=== PATIENT | male | born 1980 | race Caucasian/White ===

== ENCOUNTER → 2019-10-04 08:43 | Outpatient (CLI) | payer OTHER, SELFPAY ==
--- NOTE | 2019-10-04 08:49 | US_ITS ---
PROCEDURE: US ABDOMEN LIMITED CLINICAL INDICATION: EPIGASTRIC PAIN COMPARISON: RUQ US RUQ-(ABD LTD)1ORGAN/QUAD/FU from 12/09/2016 FINDINGS: PANCREAS: Unremarkable. No obvious mass or abnormal fluid collection. No ductal dilatation LIVER: There is diffuse heterogeneous echogenicity of the liver with scattered areas of increase echogenicity consistent with heterogeneous fatty liver infiltration. No focal liver lesions are evident. There is appropriate direction of blood flow within a non dilated portal vein. RIGHT KIDNEY: Unremarkable. Normal size and echogenicity. No hydronephrosis GALLBLADDER: No gallstones, gallbladder wall thickening, pericholecystic fluid, or biliary dilatation. IMPRESSION: Unremarkable gallbladder ultrasound. Fatty liver Dictated by: Raffaele Hall MD 10/04/2019 18:38 Electronically signed by Raffaele Hall MD in [place] 10/04/2019 18:38
--- NOTE | 2019-10-04 08:52 | NM_ITS ---
PROCEDURE: NM HEPATOBILIARY W PHARM CLINICAL INDICATION: EPIGASTRIC PAIN Right upper quadrant pain COMPARISON: US ABDOMEN LIMITED from 10/04/2019 TECHNIQUE: DOSE: 8.15 mci tc choletec 1.8 mcg of cck FINDINGS: Homogeneous activity is present within the hepatic parenchyma. Activity is present in the gallbladder by 10 minutes. Activity is present in the small bowel during the ejection fraction images.. The gallbladder ejection fraction is calculated to be 90 percent. CCK-The patient did not report pain or other symptoms during CCK infusion. IMPRESSION: No evidence of common or cystic duct obstruction. Ejection fraction is normal at 90 percent. There was some delay in visualization of the small bowel which is of questionable clinical significance. Dictated by: Raffaele Hall MD 10/07/2019 11:53 Electronically signed by Raffaele Hall MD in [place] 10/07/2019 11:53
== END ==
PROVIDERS: PCP Family Medicine; Visit Provider Physician Assistant
DX: R10.13 Epigastric pain (principal)
CPT/HCPCS: 76705; 78227; A9537; J2805

== ENCOUNTER 2022-03-19 11:33 | Emergency (ER) | payer SELFPAY ==
[2022-03-19 11:45] VITALS: BP 126/80; PULSE 96; RESP 18; TEMP 37.1; O2SAT 94; BMI 31.7
--- NOTE | 2022-03-19 11:53 | XR_ITS ---
PROCEDURE INFORMATION: Exam: XR Chest Exam date and time: 03/19/2022 12:18 PM Age: 41 years old Clinical indication: Cough; Additional info: Cough, congestion TECHNIQUE: Imaging protocol: Radiologic exam of the chest. Views: 2 views. COMPARISON: CR CXR CHEST(2 VIEWS-NOT PORTABLE) 12/03/2016 9:32 AM FINDINGS: Lungs: Unremarkable. No consolidation. Pleural spaces: Unremarkable. No pleural effusion. No pneumothorax. Heart/Mediastinum: Unremarkable. No cardiomegaly. Bones/joints: Unremarkable. IMPRESSION: No acute findings.
[2022-03-19 12:05] VITALS: BP 126/80; PULSE 96; RESP 23; TEMP 37.1; O2SAT 96; BMI 31.8
--- NOTE | 2022-03-19 12:48 | EXP.UTC ---
Discharge Plan Disposition Patient Disposition: Home, Self-Care Condition: Good Prescriptions Prescriptions: New cjcobhrgwdnssda-krgmrocyh-WX [Bromfed DM] 2-30-10 mg/5 mL Syrup 10 ml PO Q4H PRN (Reason: Cough) Qty: 240 0RF No Action azithromycin 250 MG tablet 250 mg PO DIRECTED Qty: 6 0RF Rx Instructions: Take two (2) tablets on day #1, then one (1) tablet day #2 thru #5 fluticasone propionate 120 SPR/BOT bottle 1 spr NS DAILY 7 Days Qty: 1 0RF dnjvtuovmbnmsdz-fvtpbgilq-YU 118 ML syrup 5 - 10 ml PO Q46H PRN (Reason: Cough) Qty: 200 0RF Referrals Follow up/Referrals: Jose De Jesus Perez MD [Primary Care Provider] - See instructions Activity Restrictions/Add. Instructions Additional Instructions/Restrictions: *Monitor Temp, Over the counter Motrin or Tylenol as directed/as needed Tylenol every 4 hours and Motrin every 6 hours (as long as your family doctor has told you that you can take it) for fever or pain. and straight to ER if unable to lower temp less than 101.0 after medication given *Warm salt water gargles may help to soothe the throat *Throat Lozenges? *Warm fluids like tea with honey may help to soothe the throat? *Sleep elevated *Humidifier/Vaporizer Follow up IMMEDIATELY for new or worsening symptoms or no Noticeable improvement over the next 48-72 hours. 911 for difficulty breathing or swallowing You were tested for today for Upper Respiratory Panel with COVID19 your test result should be back in the next 24-48 hours, you may check your results on the [facility] My Health Portal Lots of rest Increase Fluids water, Gatorade, powerade, pedialyte,if infant/toddler/child Alternate Tylenol and / or ibuprofen as discussed for fever, aches, chills Follow up IMMEDIATELY with your family doctor for new or worsening Symptoms OR no noticeable improvement over the next 48-72 hours, 911 for difficulty or breathing You or your child area contagious until no fever, aches, chills for 24 hours with medication for symptoms Help Prevent the spread of influenza: ?Wash your hands often. Use soap and water. Wash your hands after you use the bathroom, change a child's diapers, or sneeze. Wash your hands before you prepare or eat food. Use gel hand cleanser that has 60% alcohol, when soap and water are not available. Do not touch your eyes, nose, or mouth unless you have washed your hands first. Cover your mouth when you sneeze or cough. Cough into a tissue or the bend of your arm. If you use a tissue, throw it away immediately and wash your hands. Clean shared items with a germ-killing bus cleaner. Clean table surfaces, doorknobs, and light switches. Do not share towels, silverware, and dishes with people who are sick. Wash bed sheets, towels, silverware, and dishes with soap and water. Wear a mask over your mouth and nose if you are sick. The face mask may help protect others from becoming infected with the flu. Wear the mask when in common areas of your home or if you seek care with a healthcare provider. Stay away from others if you are sick. Stay at home until 24 hours after your fever and symptoms are gone. Clinical Impressions Clinical Impression: Viral syndrome Stand Alone Forms Stand Alone Forms: Work/School Release Instructions Patient Instructions: Cough, DI for Influenza -- Adult, DI for Viral Syndrome Discharge ED Provider: Sara Mariscal [facility] General Stated complaint: weakness, soa, cough Mode of Arrival: Ambulatory Source of Information: Patient Limitations: No Limitations Time Seen by Provider: 03/19/22 12:48 Description of Symptoms (Recalled from Triage Doc. by RN): PATIENT REPORTS HE TESTED POSITIVE FOR FLU ON MONDAY AND IS FEELING WORSE TODAY. REPORTS SOA, COUGH, BODY ACHES, AND PAIN TO CHEST AND BACK WITH C
[2022-03-19 12:57] VITALS: BP 126/80; PULSE 96; RESP 23; TEMP 37.1; O2SAT 96
[2022-03-19 13:06] LABS: Adenovirus,PCR Not Detected (NotDetected); Bordetella Pertussis Not Detected (NotDetected); Chlamydophila Pneumoniae, PCR Not Detected (NotDetected); Coronavirus 19, PCR Not Detected (NotDetected); Coronavirus 229E Not Detected (NotDetected); Coronavirus NL63 Not Detected (NotDetected); Coronavirus OC43 Not Detected (NotDetected); Coronovirus HKU1,PCR Not Detected (NotDetected); Human Metapneumovirus Not Detected (NotDetected); Influenza A, PCR Not Detected (NotDetected); Influenza AH1, PCR Not Detected (NotDetected); Influenza AH3,PCR Not Detected (NotDetected); Influenza B, PCR Not Detected (NotDetected); Mycoplasma Pneumoniae, PCR Not Detected (NotDetected); Parainfluenza 1, PCR Not Detected (NotDetected); Parainfluenza 2, PCR Not Detected (NotDetected); Parainfluenza 3, PCR Not Detected (NotDetected); Parainfluenza 4, PCR Not Detected (NotDetected); Respiratory Syncytial Virus Not Detected (NotDetected); Rhinovirus/Enterovirus Not Detected (NotDetected)
[2022-03-21 09:15] LABS: Influenza AH1, 2009 Detected (NotDetected)
--- NOTE | 2022-03-21 18:42 | PC.NURSE ---
pt notified of respiratory panel results
== END 2022-03-19 13:05 | disposition home or self-care (01) ==
PROVIDERS: Emergency Provider Nurse Practitioner; PCP Family Medicine
DX: J10.1 Influenza due to other identified influenza virus with other respiratory manifestations (principal)
CPT/HCPCS: 71046; 87581; 87632; 87798; 99212; C9803; G0463; U0003; U0005

== ENCOUNTER → 2022-05-06 11:00 | Outpatient (CLI) | payer OTHER, SELFPAY ==
[2022-05-06 18:01] LABS: Basophils # 0.1 K/mm3 (0-0.2); Basophils % 1.1 % (0.1-2.0); Eosinophils # 0.1 K/mm3 (0.0-0.4); Eosinophils % 1.6 % (0.1-12.0); Hemoglobin 16.5 g/dL (14.1-18.0); Lymphocytes # 2.9 K/mm3 (0.7-4.5); Lymphocytes % 34.7 % (10-50); Mean Corpuscular Hemoglobin 26.1 pg (27.0-31.2); Mean Corpuscular Volume 78.9 fl (80-94); Mean Platelet Volume 8.2 fl (7.4-10.4); Monocytes # 0.5 K/mm3 (0.1-1.0); Monocytes % 5.9 % (1.7-9.3); Neutrophils # 4.7 K/mm3 (1.8-7.8); Neutrophils % 56.7 % (37.0-80.0); Platelet Count 368 K/mm3 (142-424); Red Blood Count 6.33 M/mm3 (4.60-6.20); Red Cell Distribution Width 13.6 % (11.5-17.5); White Blood Count 8.2 K/mm3 (4.8-10.8)
[2022-05-06 18:10] LABS: Alanine Aminotransferase 75 U/L (12-78); Albumin Level 4.8 g/dl (3.5-5.0); Albumin/Globulin Ratio 1.5 (1.1-1.8); Alkaline Phosphatase 98 U/L (38-126); Anion Gap 10.3 mEq/L (5-15); Aspartate Amino Transferase 48 U/L (17-59); Bilirubin,Total 0.5 mg/dl (0.2-1.3); Blood Urea Nitrogen 12 mg/dl (9-20); Calcium 9.2 mg/dl (8.4-10.2); Carbon Dioxide 30 mmol/L (22.0-30.0); Chloride 104 mmol/L (98-107); Chol/HDL Ratio 5.7 (1-3.5); Cholesterol 218 mg/dl (140-200); Estimated Glomerular Filt Rate 73 ml/min (>60); GFR (African American) 89 ML/MIN (>60); Globulin 3.3 g/dL (1.3-3.2); Glucose 94 mg/dl (74-100); HDL Cholesterol 38 mg/dl (40-60); Potassium 4.3 mmoL/L (3.5-5.1); Sodium 140 mmol/L (136-145); Total Protein,Serum 8.1 g/dl (6.3-8.2); Triglycerides 265 mg/dl (30-150); VLDL Cholesterol 53 mg/dL (0-40)
[2022-05-06 18:21] LABS: Direct LDL Cholesterol 146.36 mg/dL (100-129)
[2022-05-06 18:28] LABS: 25-OH Vitamin D, Total 20.9 ng/mL (30-100)
[2022-05-06 18:40] LABS: Thyroid Stimulating Hormone 1.39 uIU/mL (0.465-4.68)
[2022-05-06 18:59] LABS: Vitamin B12 825 pg/mL (239-931)
[2022-05-14 06:03] LABS: Testosterone,Free 3.6 pg/mL (6.8-21.5)
== END ==
LOC: LAB.DROPOF 05-24 23:52
PROVIDERS: PCP Nurse Practitioner Family; Visit Provider Nurse Practitioner Family
DX: R53.83 Other fatigue (principal); I10 Essential (primary) hypertension; E55.9 Vitamin D deficiency, unspecified; E29.1 Testicular hypofunction
CPT/HCPCS: 80053; 80061; 82306; 82607; 84402; 84403; 84443; 85025

== ENCOUNTER → 2022-05-13 12:41 | Outpatient (CLI) | payer OTHER, SELFPAY ==
--- NOTE | 2022-05-13 13:32 | CA_ITS ---
APPROVED REPORT EXAM: Comprehensive 2D, Doppler, and color-flow Echocardiogram Ict Managers: Glenys Zhu, RT(R) Ht: 5 ft 9 in Wt: 207lbs BSA: 2.10 BP: 136/80 mmHg Indications: SOA, CP, ex smoker, family history of HD 2D Dimensions LVOT 2.02 cm (M/F) 1.5-2.5 M-Mode Dimensions RVDd 2.81 cm (0.9-2.6) LA Diam 3.43 cm (1.9-4.0) LVDd 4.64 cm (3.5-5.7) Ao Diam 2.71 cm (2.0-3.7) LVDs 2.58 cm (3.5-5.7) IVSd 0.91 cm (0.6-1.1) PWd 0.91 cm (0.6-1.1) EF (Teich) 75.70% FS 44.40% EDV (Teich) 99.30 mL ESV (Teich) 24.10 mL LV Diastology E Decel Time 173.00 (160-240 msec) E/A Ratio 0.8 MED E' 6.70 (< 7 cm/sec) E'/MED E' Ratio 7.60 (>14) LAT E' 7.30 (<10 cm/sec) E/LAT E' Ratio 6.97 (>14) Mitral Valve MV E Max Farhat. 51.00 (40-130 cm/s) MV A Velocity 67.00 (40-130 cm/s) E/A Ratio 0.76 MV Decel. Time 173.00 (160-240 ms) MV PHT 51.00 ms Left Ventricle Left atrium is mildly enlarged, left ventricle is normal size mild concentric left ventricular hypertrophy, estimated ejection fraction 55% with no regional wall motion abnormality, grade 1 diastolic dysfunction seen without tissue Doppler evidence of raise left atrial pressure. Right Ventricle Right atrium and right ventricular mildly enlarged with normal contractility. Aortic Valve Aortic valve is minimally thickened and fibrosed there is no aortic stenosis aortic insufficiency. Mitral Valve Mitral valve is grossly normal, there is trace mitral regurgitation. Tricuspid Valve Tricuspid valve grossly normal, there is trace tricuspid regurgitation, tricuspid regurgitation jet plus is inadequate for calculation of the right ventricular systolic pressure. Pulmonic Valve Pulmonic valve is poorly visualized. Great Vessels Aortic root is normal size. Inferior vena cava is poorly visualized. Pericardium Small pericardial effusion noted. Conclusion 1. Mild biatrial enlargement, normal left ventricular size, mild concentric left ventricular hypertrophy, estimated ejection fraction 55% with no regional wall motion abnormality, grade 1 diastolic dysfunction seen without tissue Doppler evidence of raise left atrial pressure. 2. Mildly enlarged right ventricle with normal contractility. 3. Trace mitral and tricuspid regurgitation. 4. Small pericardial effusion noted. 5. Inferior vena cava is poorly visualized. Electronically signed by : Dwain Wright MD 05/13/2022 14:11:10
== END ==
LOC: RT 12:41
PROVIDERS: PCP Nurse Practitioner Family; Visit Provider Nurse Practitioner Family
DX: R06.02 Shortness of breath (principal); R05 Cough
CPT/HCPCS: 93306; 94060; 94618

== ENCOUNTER → 2022-06-07 07:50 | Outpatient (CLI) | payer OTHER, SELFPAY ==
--- NOTE | 2022-06-07 10:27 | CA_ITS ---
APPROVED REPORT Exam: Exercise Treadmill Technologist: Velma Yi Ht: 5 ft 9 in Wt: 209 lbs BSA: 2.10 m2 HR: 72 bpm BP: 121/82 mmHg Indications: Chest pain Medical History Medications: HCTZ,,,,, Valsartan,,,,, Clomid,,,,, Stress Test Details Test: Elias HR Resting HR: 82 bpm Max Heart Rate (APMHR): 178.609262 bpm Max HR Achieved: 142 bpm Target HR (85% APMHR): 151.721145 bpm % of APMHR: 79.78 Recovery HR: 95 bpm BP Resting BP: 121.0/82.0 mmHg Max BP: 194.0/80.0 mmHg Recovery BP: 141.0/92.0 mmHg ECG Resting ECG: Normal sinus rhythm, rightward axis Clinical Exercise duration: 09:30 min Highest Stage Achieved: Exercise capacity: 10.1 METs Stress ECG Conclusion Patient exercised 9:30 on Elias Protocol Test stopped due to shortness of air, leg fatigue. Symptoms: Mild chest tightness after exercise. Arrhythmias/Ectopy: None ST-T Changes: T wave inversion in leads III and aVF with 0.5-1mm of horizontal ST depression. 0.[address] depression laterally. Conclusion: Equivocal GXT to heart rate acheived (80% of PM). GXT only(no imaging). Test Summary REST . . . . . . . Sitting REST 03:14 0.0 0.0 82 . 121/ 82 . . Stage 1 01:00 10.0 1.7 108 . . . . Stage 1 02:00 10.0 1.7 113 . . . . Stage 1 03:00 10.0 1.7 111 . 154/ 84 . . Stage 2 01:00 12.0 2.5 122 . . . . Stage 2 02:00 12.0 2.5 124 . . . . Stage 2 03:00 12.0 2.5 123 . 188/ 80 . . Stage 3 01:00 14.0 3.4 128 . . . . Stage 3 02:00 14.0 3.4 133 . . . . Stage 3 03:00 14.0 3.4 136 . 194/ 80 . . Stage 4 00:30 16.0 4.2 141 . . . Stop exercise at 09:30 RECOVERY 01:00 0.0 0.0 126 . . . . RECOVERY 02:00 0.0 0.0 102 . 165/ 96 . . RECOVERY 03:00 0.0 0.0 108 . 143/ 94 . . RECOVERY . . . . . . . Chest pain RECOVERY 04:00 0.0 0.0 93 . 143/ 94 . . RECOVERY 05:00 0.0 0.0 102 . 141/ 92 . . RECOVERY 05:29 0.0 0.0 92 . 141/ 92 . . Electronically signed by : Dwain Wright MD 06/07/2022 18:54:08
== END ==
PROVIDERS: PCP Nurse Practitioner Family; Visit Provider Nurse Practitioner Family
DX: R06.02 Shortness of breath (principal); R07.89 Other chest pain
CPT/HCPCS: 93017

== ENCOUNTER → 2022-06-27 18:03 | Outpatient (CLI) | payer OTHER, SELFPAY ==
[2022-06-27 18:49] LABS: Chloride 100 mmol/L (98-107); Sodium 139 mmol/L (136-145)
[2022-06-27 18:50] LABS: Potassium 3.7 mmoL/L (3.5-5.1)
[2022-06-27 18:52] LABS: Blood Urea Nitrogen 15 mg/dl (9-20); Estimated Glomerular Filt Rate 73 ml/min (>60); GFR (African American) 89 ML/MIN (>60)
[2022-06-27 18:53] LABS: Anion Gap 10.7 mEq/L (5-15); Calcium 8.5 mg/dl (8.4-10.2); Carbon Dioxide 32 mmol/L (22.0-30.0); Glucose 101 mg/dl (74-100)
== END ==
PROVIDERS: PCP Nurse Practitioner Family; Visit Provider Nurse Practitioner
DX: R07.89 Other chest pain (principal)
CPT/HCPCS: 80048

== ENCOUNTER → 2022-06-28 08:00 | Outpatient (CLI) | payer OTHER, SELFPAY ==
[2022-06-28 08:39] VITALS: BMI 31.0
[2022-06-28 09:05] VITALS: BP 124/69; PULSE 55; RESP 18; O2SAT 98
== END ==
LOC: RAD 08:01
PROVIDERS: PCP Nurse Practitioner Family; Visit Provider Nurse Practitioner Family
DX: R06.02 Shortness of breath (principal); I10 Essential (primary) hypertension; R94.31 Abnormal electrocardiogram [ECG] [EKG]; R94.39 Abnormal result of other cardiovascular function study
CPT/HCPCS: 75574; Q9967

== ENCOUNTER 2022-07-08 18:06 | Emergency (ER) | payer OTHER, SELFPAY ==
[2022-07-08 18:15] VITALS: BP 149/101; PULSE 86; RESP 22; TEMP 36.6; O2SAT 97; BMI 31.7
--- NOTE | 2022-07-08 18:20 | XR_ITS ---
PROCEDURE INFORMATION: Exam: XR Right Ribs with PA Chest Exam date and time: 07/08/2022 6:25 PM Age: 41 years old Clinical indication: Pain; Other: Right rib; Additional info: Pain in ribs TECHNIQUE: Imaging protocol: Radiologic exam of the right ribs with PA chest. Views: 3 views COMPARISON: CR XR CHEST 2V 03/19/2022 12:18 PM FINDINGS: Lungs: Unremarkable. No consolidation. Pleural spaces: Unremarkable. No pleural effusion. No pneumothorax. Heart/Mediastinum: Unremarkable. No cardiomegaly. Bones/joints: Unremarkable. IMPRESSION: No acute findings.
--- NOTE | 2022-07-08 18:32 | EXP.UTC ---
Discharge Plan Disposition Patient Disposition: Home, Self-Care Condition: Good Prescriptions Prescriptions: New benzonatate 100 mg capsule 100 mg PO TID PRN (Reason: cough) Qty: 30 0RF azithromycin [Zithromax Z-Carlitos] 250 mg tablet See Rx Instructions .ROUTE .COMPLEX 5 Days Qty: 6 0RF Rx Instructions: For 250 mg dose pack: take 500 mg today (day 1), then 250 mg for 4 days (days 2-5) No Action albuterol sulfate 90 mcg/actuation HFA aerosol inhaler 2 puff inhalation Q4-6H PRN (Reason: shortness of breath or wheezing) Qty: 8.5 3RF cetirizine [Zyrtec] 10 mg tablet 10 mg PO DAILY PRN (Reason: allergy symptoms) Qty: 30 3RF fluticasone propionate [Flonase Allergy Relief] 50 mcg/actuation spray,suspension 1 spray intranasal DAILY Qty: 16 2RF Rx Instructions: administer into each nostril clomiphene citrate [Clomid] 50 mg tablet 25 mg PO DAILY Rx Instructions: 25 days on 5 days off valsartan-hydrochlorothiazide 160-12.5 mg tablet 1 tab PO DAILY Referrals Follow up/Referrals: Reginaldo Vazquez APRN [Primary Care Provider] - See instructions Activity Restrictions/Add. Instructions Additional Instructions/Restrictions: *Monitor Temp, Over the counter Motrin or Tylenol as directed/as needed Tylenol every 4 hours and Motrin every 6 hours (as long as your family doctor has told you that you can take it) for fever or pain. and straight to ER if unable to lower temp less than 101.0 after medication given *Warm salt water gargles may help to soothe the throat *Throat Lozenges? *Warm fluids like tea with honey may help to soothe the throat? *Sleep elevated *Humidifier/Vaporizer Take medication as prescribed Continue using flonase as prescribed Follow up IMMEDIATELY for new or worsening symptoms or no Noticeable improvement over the next 48-72 hours. 911 for difficulty breathing or swallowing Clinical Impressions Clinical Impression: Sinusitis Instructions Patient Instructions: Sinusitis, DI for Sinusitis Discharge ED Provider: Sara Mariscal [facility] [place] General Stated complaint: cough, SOB R Ribs pain Mode of Arrival: Ambulatory Source of Information: Patient Limitations: No Limitations Time Seen by Provider: 07/08/22 18:32 Description of Symptoms (Recalled from Triage Doc. by RN): PATIENT C/O COUGH AND SINUS PRESSURE X 2 DAYS. HE STATES HE HAD A SNEEZING FIT YESTERDAY AND FELT A SHARP PAIN TO RIGHT SIDE. SINCE THEN HE C/O RIGHT RIB PAIN WITH COUGHING AND BREATHING HEENT Symptoms (Recalled from RN notes): Yes Resp Symptoms (Recalled from RN notes): Yes Skin Symptoms (Recalled from RN notes): No MS Symptoms (Recalled from RN notes): Yes Functional Status (Recalled from RN notes): WNL History of Present Illness Provider Complaint: Patient states that he has been having sinus pain and pressure for the last couple of days with cough and yesterday as he was bent over he had a sneezing fit and felt a sharp pain/catch in his right lower ribs States that since then he has been having pain in his ribs when he takes a deep breath or coughs States that today he was till having pain so he came in worried he may have broken a rib Related Data Home Medications Medication Instructions Recorded Confirmed clomiphene citrate 50 mg tablet 25 mg PO DAILY . 06/28/22 (Clomid) valsartan 160 1 tab PO DAILY bp 06/28/22 mg-hydrochlorothiazide 12.5 mg tablet Previous Rx's Medication Instructions Recorded cetirizine 10 mg tablet (Zyrtec) 10 mg PO DAILY PRN allergy 06/29/22 symptoms #30 tabs fluticasone propionate 50 1 spray intranasal DAILY #16 grams 06/29/22 mcg/actuation nasal spray,suspension (Flonase Allergy Relief) albuterol sulfate 90 mcg/actuation 2 puff inhalation Q4-6H PRN 07/07/22 aerosol inhaler shortness of breath or wheezing #8.5 grams azithromycin 250 mg tablet See Rx Instructions PO .COMPLEX 5 07/08/22 (Zithromax Z-Carlitos)
[2022-07-08 18:53] VITALS: BP 147/95; PULSE 86; RESP 22; TEMP 36.6; O2SAT 97
== END 2022-07-08 18:55 | disposition home or self-care (01) ==
PROVIDERS: Emergency Provider Nurse Practitioner; PCP Nurse Practitioner Family
DX: J01.90 Acute sinusitis, unspecified (principal); Z87.891 Personal history of nicotine dependence; R07.81 Pleurodynia
CPT/HCPCS: 71101; 99212; 99214; G0463

== ENCOUNTER → 2022-09-28 13:40 | Outpatient (CLI) | payer OTHER, SELFPAY | PROVIDERS: PCP Nurse Practitioner Family; Visit Provider Internal Medicine Pulmonary Disease | DX: R06.09 Other forms of dyspnea (principal); J45.40 Moderate persistent asthma, uncomplicated | CPT/HCPCS: 94070; 95070; J7674 ==

== ENCOUNTER 2023-04-03 19:11 | Emergency (ER) | payer OTHER, SELFPAY ==
[2023-04-03 19:13] VITALS: BP 153/102; PULSE 82; RESP 20; TEMP 36.6; O2SAT 97; BMI 31.7
--- NOTE | 2023-04-03 19:47 | ED_ITS ---
Discharge Plan Disposition Patient Disposition: Home, Self-Care Prescriptions Prescriptions: New tamsulosin 0.4 mg capsule 0.4 mg PO DAILY Qty: 30 0RF lidocaine 5 % adhesive patch,medicated 1 patch topical DAILY PRN (Reason: pain) Qty: 30 0RF Rx Instructions: leave on most painful area for up to 12 hrs No Action budesonide-formoterol [Symbicort] 160-4.5 mcg/actuation HFA aerosol inhaler 2 puff inhalation BID 90 Days Qty: 10.2 2RF albuterol sulfate 90 mcg/actuation HFA aerosol inhaler 2 puff inhalation Q4-6H PRN (Reason: shortness of breath or wheezing) Qty: 8.5 3RF Referrals Follow up/Referrals: Reginaldo Vazquez APRN [Primary Care Provider] - See instructions Activity Restrictions/Add. Instructions Additional Instructions/Restrictions: Please follow-up with your primary care provider. Please return to the emergency department if you develop any new or worsening symptoms or become concerned for your health. Please take tamsulosin daily until symptom resolution. Monitor for signs of systemic infection and return if your symptoms worsen or do not improve. Clinical Impressions Clinical Impression: Kidney stone on right side Abdominal pain Qualifiers: Abdominal location: lower abdomen, unspecified Qualified Code(s): R10.30 - Lower abdominal pain, unspecified Instructions Patient Instructions: DI for Urinary Tract Infection (UTI), DI for Urinary Tract Infection in Children Discharge ED Provider: Ralph Palomino General Adult HPI General Chief complaint: Urogenital-Male Stated complaint: lower back pain, burning when urinating Time Seen by Provider: 04/03/23 19:46 History of Present Illness HPI narrative: 42-year-old male with no significant past medical history presents with several days of worsening bilateral low back pain and mild abdominal pain. He reports some burning with urination. He denies any history of urinary tract infections or STDs. Reports no concern for such. Reports no fevers at home. Related Data Previous Rx's Medication Instructions Recorded albuterol sulfate 90 mcg/actuation 2 puff inhalation Q4-6H PRN 08/29/22 aerosol inhaler shortness of breath or wheezing #8.5 grams budesonide-formoterol HFA 160 2 puff inhalation BID 90 days 09/28/22 mcg-4.5 mcg/actuation aerosol #10.2 grams inhaler (Symbicort) lidocaine 5 % topical patch 1 patch topical DAILY PRN pain #30 04/03/23 ea tamsulosin 0.4 mg capsule 0.4 mg PO DAILY #30 caps 04/03/23 Allergies Allergy/AdvReac Type Severity Reaction Status Date / Time No Known Allergies Allergy Verified 09/28/22 15:18 [facility] Disclaimer: The information contained in this section may have been updated after the patient was seen, as this information can be updated by other users. Medical History (Updated 04/03/23 @ 21:50 by Ralph Palomino MD) Abnormal electrocardiogram [ECG] [EKG] Disordered sleep Dyspnea on exertion Equivocal stress test Hypertension No significant past medical history SOB (shortness of breath) Surgical History H/O hernia repair H/O: vasectomy Family History Other Family history of CVA Family history of cancer Social History (Updated 08/29/22 @ 14:02 by Bev Lizama) Smoking Status: Never smoker smoking status stop date: 2008 alcohol intake: never substance use type: denies use current occupational status: employed and other Travel in the last 8 weeks: Inside the [place] ROS Obtained: Yes All systems reviewed & no additional complaints except as documented Physical Exam General General appearance: alert and in no apparent distress Head Head exam: atraumatic and normocephalic Eye Eye exam: Present normal appearance, PERRL and EOMI ENT ENT exam: Present normal oropharynx and normal external ear exam Neck Neck exam: Present normal inspection and full ROM Chest Chest inspection: Present normal inspection and symmetric chest wall rise; Absent tenderness Respiratory Respiratory exam: Present normal lung sounds bilaterally; Absent respiratory distress Cardiovascular Cardiovascular exam: Present regular rate and normal rhythm Abdominal Exam Abdominal exam: Present soft and tenderness (Mild bilateral lower quadrant); Absent distention or guarding Extremities Exam Extremities exam: Present normal inspection; Absent edema or joint swelling Back Exam Back exam: Present normal inspection and tenderness (Mild lumbar paraspinal tenderness); Absent CVA tenderness (R) or CVA tenderness (L) Neurological Exam Neurological exam: Present alert and oriented X3; Absent motor sensory deficit Psychiatric Psychiatric exam: Present normal affect and normal mood Skin Skin exam: Present warm, dry and normal color Lymphatic Lymphatic Findings: no adenopathy Medical Decision Making Medical Records Medical records reviewed: Yes I reviewed the patient's medical records. Kiko Inquiry Pt receiving controlled substance: No Kiko was queried for this patient: No Vital Signs: 04/03/23 19:13 04/03/23 22:03 Temperature 98 F 97.8 F Temperature Source Oral Oral Pulse Rate 58 L Pulse Rate [Right] 82 Respiratory Rate 20 18 Blood Pressure 141/82 H Blood Pressure [Right Arm] 153/102 H Blood Pressure Mean [Right Arm] 119 Blood Pressure Source Automatic Cuff Blood Pressure Source [Right Arm] Automatic Cuff Blood Pressure Position Supine Blood Pressure Position [Right Arm] Sitting 02 Sat by Pulse Oximetry 97 Oxygen Delivery Method Room Air Room Air Lab Data Lab results reviewed: Yes I reviewed the patient's lab results. Lab Results 04/03/23 19:43: Urine Color Yellow, Urine Appearance Clear, Urine pH 6.0, Ur Specific [place] 1.010, Urine Protein Negative, Urine Glucose (UA) Negative, Urine Ketones Negative, Urine Blood 2+, Urine Nitrate Negative, Urine Bilirubin Negative, Urine Urobilinogen 0.2, Ur Leukocyte Esterase Negative, Urine RBC 10- 20, Urine WBC Occasional, Ur Squamous Epith Cells Occasional, Urine Bacteria Trace 04/03/23 20:00: WBC 8.7, RBC 5.93, Hgb 16.0, Hct 46.9, MCV 79.2 L, MCH 27.0, MCHC 34.0, RDW 13.7, Plt Count 258, MPV 7.3 L, Neut % (Auto) 57.9, Lymph % (Auto) 35.3, [place] % (Auto) 4.5, Eos % (Auto) 1.6, Baso % (Auto) 0.7, Neut # (Auto) 5.0, Lymph # (Auto) 3.1, [place] # (Auto) 0.4, Eos # (Auto) 0.1, Baso # (Auto) 0.1, Sodium 137, Potassium 3.8, Chloride 100, Carbon Dioxide 32 H, Anion Gap 8.8, BUN 13, Creatinine 1.10, Estimated Creat Clear 119, Estimated GFR 73, Est GFR ( Amer) 88, Glucose 113 H, Calcium 8.6, Total Bilirubin 0.5, AST 61 H, ALT 93 H, Alkaline Phosphatase 82, Total Protein 7.4, Albumin 4.2, Globulin 3.2, Albumin/Globulin Ratio 1.3 04/03/23 20:00 04/03/23 20:00 Orders (Tests/Meds): ED MEDICATIONS Discontinued Medications Generic Name Dose Route Start Last Admin Trade Name Benjaminq PRN Reason Stop Dose Admin Acetaminophen 1,000 mg 04/03/23 19:51 04/03/23 20:12 Acetaminophen 500mg Tab PO 04/03/23 19:52 1,000 mg ONCE ONE Administration Iopamidol 75 ml 04/03/23 20:15 04/03/23 20:16 Iopamidol-370 (76%);100ml Bottle IV 04/03/23 20:16 75 ml ONCE ONE Administration Ketorolac Tromethamine 30 mg 04/03/23 19:51 04/03/23 20:12 Ketorolac 30mg/Ml Vial IV 04/03/23 19:52 30 mg ONCE ONE Administration Sodium Chloride 10 ml 04/03/23 20:15 04/03/23 20:16 Sodium Chloride 0.9% 10ml Syr (Rad Only) IV 05/03/23 20:14 10 ml NEEDED PRN Administration Maintain IV Site Tamsulosin HCl 0.4 mg 04/03/23 21:50 04/03/23 21:56 Tamsulosin 0.4mg Capsule PO 04/03/23 21:51 0.4 mg ONCE ONE Administration ORDERS Category Date Time Status CT abdomen pelvis w con Stat Cat Scan 04/03/23 19:51 Completed CBC w/Auto Diff [Complete Blood Count Auto Diff] Stat Lab 04/03/23 20:00 Completed CMP [Comprehensive Metabolic Panel] Stat Lab 04/03/23 20:00 Completed UA [Urinalysis and Microscopic] Stat Lab 04/03/23 19:43 Completed Medical Decision Narrative: 42-year-old male, previously healthy presents with low back and lower abdominal pain. History was obtained via conversation with patient, family. On arrival, patient is [afebrile, hemodynamically stable, satting appropriately, alert, oriented x4, GCS 15], moving all extremities spontaneously. Full physical exam performed and significant for mild lower abdominal and low back tenderness. Differential includes but is not limited to diverticulitis, UTI, obstructive nephrolithiasis, gastroenteritis, hernia. Patient was given p.o. Tylenol, IV Toradol for symptomatic management and correction of underlying abnormalities. Patient declined any stronger medication intervention. Workup initiated including CBC CMP UA CT Abdo pelvis with IV contrast. On re-evaluation, patient [remains afebrile, HD stable.] Laboratory workup independently interpreted by me and significant for no leukocytosis, normal renal function, mildly elevated LFTs, urine is consistent with kidney stone with 10-20 RBCs and occasional WBCs. Nitrite negative. Not appear consistent with acute infection.. Imaging independently interpreted by me and significant for 5 x 4 mm stone in the distal right ureter without evidence of obstruction. See radiology read for full review of final results. Given patient history, exam and workup, patient's presentation most likely represents nonobstructing right ureteral stone. Patient given dose of tamsulosin. Extensive discussion with patient and family regarding presentation. Plan for NSAIDs and Tylenol and tamsulosin at home. Encouraged to remain hydrated. Patient was given strict return precautions for development of fever or systemic symptoms symptoms or uncontrollable pain. Procedures Risk/Benefits of Procedure(s) Were Explained: Yes Critical Care Critical Care Time Critical Care Time: No
--- NOTE | 2023-04-03 19:51 | CT_ITS ---
PROCEDURE INFORMATION: Exam: CT Abdomen And Pelvis With Contrast Exam date and time: 04/03/2023 8:04 PM Age: 42 years old Clinical indication: Abdominal pain; Additional info: Bilat low back/abd pain, urinary symptoms TECHNIQUE: Imaging protocol: Computed tomography of the abdomen and pelvis with contrast. Radiation optimization: All CT scans at this facility use at least one of these dose optimization techniques: automated exposure control; mA and/or kV adjustment per patient size (includes targeted exams where dose is matched to clinical indication); or iterative reconstruction. Contrast material: ISOVUE; Contrast volume: 75 ml; Contrast route: IV; COMPARISON: [facility] 10/04/2019 10:04 AM FINDINGS: Lungs: Lung bases are clear. Liver: Fatty liver changes. Liver otherwise unremarkable. Gallbladder and bile ducts: Normal. No calcified stones. No ductal dilation. Pancreas: Normal. No ductal dilation. Spleen: Normal. No splenomegaly. Adrenal glands: Normal. No mass. Kidneys and ureters: A 5.5 x 4 mm stone noted in the distal right ureter 2 cm proximal to the ureterovesical junction. No evidence of hydroureteronephrosis. Kidneys and ureters otherwise unremarkable with no other obstructing stones or uropathy. Stomach and bowel: Unremarkable. No obstruction. No mucosal thickening. Appendix: Appendix is normal. No evidence of appendicitis. Intraperitoneal space: Unremarkable. No free air. No significant fluid collection. Vasculature: Unremarkable. No abdominal aortic aneurysm. Lymph nodes: Unremarkable. No enlarged lymph nodes. Urinary bladder: Unremarkable as visualized. Reproductive: Unremarkable as visualized. Bones/joints: Unremarkable. No acute fracture. Soft tissues: Unremarkable. IMPRESSION: 1. A 5.5 x 4 mm stone noted in the distal right ureter. No evidence of hydroureteronephrosis. 2. Additional nonemergent findings as above.
[2023-04-03 20:01] LABS: Microscopic, Urine URINE MICROSCOPIC (MICROSCOPIC)
[2023-04-03] MEDS: ACETAMINOPHEN 500MG TAB 1000 MG PO (20:12)
[2023-04-03] MEDS: KETOROLAC 30MG/ML VIAL 30 MG IV (20:12)
[2023-04-03] MEDS: SODIUM CHLORIDE 0.9% 10ML SYR (RAD ONLY) 10 ML IV (20:16)
[2023-04-03] MEDS: IOPAMIDOL-370 (76%);100ML BOTTLE 75 ML IV (20:16)
[2023-04-03 20:23] LABS: Basophils # 0.1 K/mm3 (0-0.2); Basophils % 0.7 % (0.1-2.0); Eosinophils # 0.1 K/mm3 (0.0-0.4); Eosinophils % 1.6 % (0.1-12.0); Hematocrit 46.9 % (42.0-52.0); Lymphocytes # 3.1 K/mm3 (0.7-4.5); Lymphocytes % 35.3 % (10-50); Mean Corpuscular Volume 79.2 fl (80-94); Mean Platelet Volume 7.3 fl (7.4-10.4); Monocytes # 0.4 K/mm3 (0.1-1.0); Monocytes % 4.5 % (1.7-9.3); Neutrophils % 57.9 % (37.0-80.0); Platelet Count 258 K/mm3 (142-424); Red Blood Count 5.93 M/mm3 (4.60-6.20); Red Cell Distribution Width 13.7 % (11.5-17.5); White Blood Count 8.7 K/mm3 (4.8-10.8)
[2023-04-03 20:31] LABS: Chloride 100 mmol/L (98-107); Potassium 3.8 mmoL/L (3.5-5.1); Sodium 137 mmol/L (136-145)
[2023-04-03 20:33] LABS: Blood Urea Nitrogen 13 mg/dl (9-20); Creatinine Clearance Estimated 119 mL/min (50-200); Estimated Glomerular Filt Rate 73 ml/min (>60); GFR (African American) 88 ML/MIN (>60)
[2023-04-03 20:34] LABS: Alanine Aminotransferase 93 U/L (12-78); Albumin Level 4.2 g/dl (3.5-5.0); Albumin/Globulin Ratio 1.3 (1.1-1.8); Alkaline Phosphatase 82 U/L (38-126); Anion Gap 8.8 mEq/L (5-15); Aspartate Amino Transferase 61 U/L (17-59); Bilirubin,Total 0.5 mg/dl (0.2-1.3); Calcium 8.6 mg/dl (8.4-10.2); Carbon Dioxide 32 mmol/L (22.0-30.0); Globulin 3.2 g/dL (1.3-3.2); Glucose 113 mg/dl (74-100); Total Protein,Serum 7.4 g/dl (6.3-8.2)
[2023-04-03 20:41] LABS: Appearance,Urine CLEAR (Clear); Bilirubin,Urine Negative (Negative); Blood, Urine 2+ (Negative); Color,Urine YELLOW (Yellow); Glucose,Urine (UA) Negative (Negative); Ketones,Urine Negative (Negative); Leukocyte Esterase,Urine Negative (Negative); Nitrate,Urine Negative (Negative); Protein,Urine Negative (Negative); Urobilinogen,Urine 0.2 EU/dl (0.2)
[2023-04-03 21:27] LABS: WBC,Urine Occasional #/hpf (0-3)
[2023-04-03 21:28] LABS: Bacteria,Urine Trace /lpf; Squamous Epithelial Cell,Urine Occasional #/hpf (0-5)
[2023-04-03] MEDS: TAMSULOSIN 0.4MG CAPSULE 0.400000000000000022 MG PO (21:56)
[2023-04-03 22:03] VITALS: BP 141/82; PULSE 58; RESP 18; TEMP 36.6; O2SAT 95
== END 2023-04-03 22:04 | disposition home or self-care (01) ==
PROVIDERS: Emergency Provider Emergency Medicine; PCP Nurse Practitioner Family
DX: N20.1 Calculus of ureter (principal); R10.30 Lower abdominal pain, unspecified; M54.50 Low back pain, unspecified; I10 Essential (primary) hypertension
CPT/HCPCS: 74177; 80053; 81001; 85025; 96374; 99285; Q9967

== ENCOUNTER 2023-05-04 11:25 | Emergency (ER) | payer OTHER, SELFPAY ==
[2023-05-04 11:33] VITALS: BP 166/88; PULSE 88; RESP 14; TEMP 36.5; O2SAT 98; BMI 31.7
--- NOTE | 2023-05-04 11:49 | XR_ITS ---
FINAL REPORT CLINICAL HISTORY: cough, fever, soa x 3 days COMPARISON: 07/08/2022 FINDINGS: CHEST 2 VIEWS PA AND LATERAL The heart is normal in size. The mediastinum is unremarkable. There is a small nodular opacity in the right upper lobe measuring 12 mm, worse from previous. There is no pneumothorax. IMPRESSION: Nodule versus focal infiltrate in the right upper lobe. Recommend follow-up radiographs or CT. Reviewed, Interpreted and Dictated by Ozzy Zavala III, MD Transcribed by Sherice Mai Authenticated and [facility]
[2023-05-04 11:55] LABS: Influenza A, PCR Not Detected (NotDetected); Influenza B, PCR Not Detected (NotDetected)
[2023-05-04 12:17] LABS: Microscopic, Urine URINE MICROSCOPIC (MICROSCOPIC)
[2023-05-04] MEDS: DEXAMETHASONE 4MG TABLET 10 MG PO (12:20)
--- NOTE | 2023-05-04 12:22 | HMH.EDGENADL ---
Discharge Plan Disposition Patient Disposition: Home, Self-Care Prescriptions Prescriptions: New dexamethasone 6 mg tablet 6 mg PO DAILY Qty: 5 0RF No Action budesonide-formoterol [Symbicort] 160-4.5 mcg/actuation HFA aerosol inhaler 2 puff inhalation BID 90 Days Qty: 10.2 2RF albuterol sulfate 90 mcg/actuation HFA aerosol inhaler 2 puff inhalation Q4-6H PRN (Reason: shortness of breath or wheezing) Qty: 8.5 3RF tamsulosin 0.4 mg capsule 0.4 mg PO DAILY Qty: 30 0RF lidocaine 5 % adhesive patch,medicated 1 patch topical DAILY PRN (Reason: pain) Qty: 30 0RF Rx Instructions: leave on most painful area for up to 12 hrs Referrals Follow up/Referrals: Reginaldo Vazquez APRN [Primary Care Provider] - See instructions Activity Restrictions/Add. Instructions Additional Instructions/Restrictions: Steroid every morning for 5 days. Take Tylenol 1000 mg every 6 hours (4 times daily) and ibuprofen 400 mg every 6 hours (4 times daily) as needed with food and water to prevent GI upset and kidney damage. Call your family doctor to establish care for this visit to the emergency department and schedule follow-up within 48 hours to ensure improvement. If you have any worsening of your condition or any other concerning signs or symptoms, return to the emergency department or your primary care doctor for further evaluation. Clinical Impressions Clinical Impression: COVID-19 Discharge ED Provider: Shahzad Travis General Adult HPI General Chief complaint: Upper Respiratory Infection Stated complaint: body aches sob headaches Time Seen by Provider: 05/04/23 11:27 Mode of Arrival: Ambulatory Source of Information: Patient Limitations: No Limitations Description of Symptoms (Recalled from ER Triage Doc. by RN): pts c/o cough and SOA last wk. pt states he is still having a cough and his O2 sat last night was 92%. He is at 98% currently. pt states he was here 3wks ago and diagnosed with a kidney stone. Pt states he has still not passed it and c/o burning. History of Present Illness HPI narrative: 42-year-old male no relevant medical history presenting with shortness of breath and cough. Patient states that he has been sick with cough and shortness of breath over the past week. States put oxygen pulse oximeter on him last night while he was sleeping and breathing funny, and it was 92%. Also complaining of kidney stone pain in his left flank. Has not taken anything for these symptoms. Cough is productive of white sputum, no fevers or chills, nausea or vomiting. No chest pain. Related Data Previous Rx's Medication Instructions Recorded albuterol sulfate 90 mcg/actuation 2 puff inhalation Q4-6H PRN 08/29/22 aerosol inhaler shortness of breath or wheezing #8.5 grams budesonide-formoterol HFA 160 2 puff inhalation BID 90 days 09/28/22 mcg-4.5 mcg/actuation aerosol #10.2 grams inhaler (Symbicort) lidocaine 5 % topical patch 1 patch topical DAILY PRN pain #30 04/03/23 ea tamsulosin 0.4 mg capsule 0.4 mg PO DAILY #30 caps 04/03/23 dexamethasone 6 mg tablet 6 mg PO DAILY #5 tabs 05/04/23 Allergies Allergy/AdvReac Type Severity Reaction Status Date / Time No Known Allergies Allergy Verified 09/28/22 15:18 [facility] Disclaimer: The information contained in this section may have been updated after the patient was seen, as this information can be updated by other users. Medical History (Updated 05/04/23 @ 12:57 by Shahzad Travis MD) Abnormal electrocardiogram [ECG] [EKG] Disordered sleep Dyspnea on exertion Equivocal stress test Hypertension No significant past medical history SOB (shortness of breath) Surgical History H/O hernia repair H/O: vasectomy Family History Other Family history of CVA Family history of cancer Social History (Updated 08/29/22 @ 14:02 by Bev Lizama) Smoking Status: Never smoker smoking status stop date: 2008 alcohol intake: never substance use type: denies use current occupational status: employed and other Travel in the last 8 weeks: Inside the [place] ROS Obtained: Yes All systems reviewed & no additional complaints except as documented Physical Exam General General appearance: alert and in no apparent distress Head Head exam: atraumatic and normocephalic Eye Eye exam: Present normal appearance, PERRL and EOMI ENT ENT exam: Present mucous membranes moist Neck Neck exam: Present normal inspection, full ROM and trachea midline Respiratory Respiratory exam: Present wheezes (Isolated left posterior inferior); Absent respiratory distress, stridor, accessory muscle use or prolonged expiratory phase Cardiovascular Cardiovascular exam: Present normal rhythm Abdominal Exam Abdominal exam: Present soft; Absent distention, tenderness, guarding, rebound or rigidity Extremities Exam Extremities exam: Absent edema Neurological Exam Neurological exam: Present alert, oriented X3, CN II-XII intact and normal gait; Absent motor sensory deficit Skin Skin exam: Present warm and dry; Absent diaphoresis or erythema Medical Decision Making Medical Records Medical records reviewed: Yes I reviewed the patient's medical records. Kiko Inquiry Pt receiving controlled substance: No Kiko was queried for this patient: No Vital Signs: 05/04/23 11:33 Temperature 97.7 F Temperature Source Oral Pulse Rate [Left] 88 Respiratory Rate 14 Blood Pressure [Right Arm] 166/88 H Blood Pressure Mean [Right Arm] 114 Blood Pressure Source [Right Arm] Automatic Cuff Blood Pressure Position [Right Arm] Sitting 02 Sat by Pulse Oximetry 98 Lab Data Lab Results 05/04/23 11:30: SARS-CoV-2 (PCR) Detected A, Influenza A Untype (PCR) Not detected, Influenza Type B (PCR) Not detected 05/04/23 11:58: Urine Color Yellow, Urine Appearance Clear, Urine pH 6.5, Ur Specific [place] 1.025, Urine Protein Negative, Urine Glucose (UA) Negative, Urine Ketones Negative, Urine Blood Trace-i, Urine Nitrate Negative, Urine Bilirubin Negative, Urine Urobilinogen 2.0, Ur Leukocyte Esterase Negative Orders (Tests/Meds): ED MEDICATIONS Discontinued Medications Generic Name Dose Route Start Last Admin Trade Name Raul PRN Reason Stop Dose Admin Dexamethasone 10 mg 05/04/23 12:07 05/04/23 12:20 Dexamethasone 4mg Tablet PO 05/04/23 12:08 10 mg ONCE ONE Administration ORDERS Category Date Time Status Chest XR 2 view (NOT portable) [XR chest 2V] Stat Exams 05/04/23 11:49 Taken Rapid PCR Covid and Flu A/B Stat Lab 05/04/23 11:30 Completed Urinalysis and Microscopic Stat Lab 05/04/23 11:58 Results Medical Decision Narrative: 42-year-old male no relevant medical history presenting with shortness of breath and cough. Patient states that he has been sick with cough and shortness of breath over the past week. States put oxygen pulse oximeter on him last night while he was sleeping and breathing funny, and it was 92%. Also complaining of kidney stone pain in his left flank. Has not taken anything for these symptoms. Cough is productive of white sputum, no fevers or chills, nausea or vomiting. No chest pain. History was obtained via conversation with patient. On arrival, patient hemodynamically stable, alert, oriented x4, appropriate, GCS 15, moving all extremities spontaneously, pupils equal and reactive to light. Full physical exam performed and significant for very well-appearing male no acute distress. Normotensive, nontachycardic, saturating appropriately on room air, nontachypneic. Lungs are clear to auscultation other than left inferior/posterior lung reyes with isolated wheezes. Cardiac exam within normal limits. Differential includes bronchitis, pneumonia, among others. Patient was given Decadron p.o. for symptomatic management and correction of underlying abnormalities. Workup independently interpreted and significant for COVID positive swab. No evidence of pneumonia on chest x-ray. See radiology read for full review of final results. On reevaluation, patient resting comfortably in bed. Given patient presentation, workup, history, this most likely represents COVID-positive viral syndrome. Because patient at baseline without signs or symptoms of clinical decompensation, deemed appropriate for discharge. Results were relayed to patient who voiced understanding and were agreeable to outpatient management and follow up. At the time of discharge the patient was hemodynamically stable, tolerating PO, and mobilizing appropriately. Critical Care Critical Care Time Critical Care Time: No
[2023-05-04 12:31] LABS: Appearance,Urine CLEAR (Clear); Bilirubin,Urine Negative (Negative); Blood, Urine TRACE-I (Negative); Color,Urine YELLOW (Yellow); Glucose,Urine (UA) Negative (Negative); Ketones,Urine Negative (Negative); Leukocyte Esterase,Urine Negative (Negative); Nitrate,Urine Negative (Negative); PH,Urine 6.5 (5.0-8.5); Protein,Urine Negative (Negative); Specific Gravity, Urine 1.025 (1.005-1.030)
[2023-05-04 12:45] LABS: Coronavirus 19, PCR Detected (NotDetected)
[2023-05-04 13:08] LABS: WBC,Urine Occasional #/hpf (0-3)
[2023-05-04 13:09] LABS: Bacteria,Urine Trace /lpf; Mucus,Urine Trace /lpf
[2023-05-04 13:16] VITALS: BP 143/82; PULSE 79; RESP 14; TEMP 36.5
== END 2023-05-04 13:19 | disposition home or self-care (01) ==
PROVIDERS: Emergency Provider Emergency Medicine; PCP Nurse Practitioner Family
DX: U07.1 COVID-19 (principal); R05.9 Cough, unspecified; R06.02 Shortness of breath; R10.9 Unspecified abdominal pain; I10 Essential (primary) hypertension
CPT/HCPCS: 71046; 81001; 87636; 99284